=== PATIENT | female | born 1990 | race Caucasian/White ===

== ENCOUNTER 2016-10-10 11:18 | Emergency (ER) | payer OTHER ==
[2016-10-10 12:02] VITALS: BP 130/84; PULSE 80; RESP 17; TEMP 98.3
[2016-10-10] MEDS ORDERED: HEPATITIS B VIRUS VAC-ADULT/PF 10 MCG/ML 1 ML VIAL IM ONE (13:06)
[2016-10-10] MEDS ORDERED: DIPH,PERTUS(ACELL)TETVAC-LF 0.5 ML VIAL IM ONE (13:06)
[2016-10-10] MEDS ORDERED: metroNIDAZOLE 500 MG TAB PO STA (13:10)
[2016-10-10] MEDS ORDERED: SULFAMETHOX-TMP 800-160MG 1 EACH TAB PO STA (13:10)
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
== END 2016-10-10 13:45 | disposition home or self-care (01) ==
LOC: EC 11:18
DX: S61.032A Puncture wound without foreign body of left thumb without damage to nail, initial encounter (principal); S81.832A Puncture wound without foreign body, left lower leg, initial encounter; Y04.1XXA Assault by human bite, initial encounter; Y93.F9 Activity, other caregiving; Y92.218 Other school as the place of occurrence of the external cause; Y99.0 Civilian activity done for income or pay; Z23 Encounter for immunization; Z79.3 Long term (current) use of hormonal contraceptives; Z88.0 Allergy status to penicillin
CPT/HCPCS: 90471; 90715; 90746; 96372; 99283

== ENCOUNTER → 2017-05-03 | Outpatient (CLI) | payer OTHER ==
[2017-05-09 14:07] LABS: Cow's Milk IgG 86.7 mcg/mL (< 2.0); Peanut IgG 2.3 mcg/mL (< 2.0); Potato IgG < 2.0 mcg/mL (< 2.0); Soybean IgG < 2.0 mcg/mL (< 2.0); Tomato IgG < 2.0 mcg/mL (< 2.0); Wheat IgG 8.8 mcg/mL (< 2.0)
== END | disposition home or self-care (01) ==
LOC: LABWHC1 10:33
PROVIDERS: ATTEND Otolaryngology
DX: J30.89 Other allergic rhinitis (principal)
CPT/HCPCS: 36415; 86001; 86003

== ENCOUNTER 2017-10-25 16:06 | Emergency (ER) | payer OTHER ==
[2017-10-25 16:30] VITALS: RESP 18
[2017-10-25] MEDS ORDERED: MECLIZINE 12.5 MG TAB PO STA (17:11)
[2017-10-25] MEDS ORDERED: ONDANSETRON 4 MG ODT STARTER PACK 2 TAB BTL PO STA (17:11)
[2017-10-25] MEDS ORDERED: ACETAMINOPHEN TAB 500 MG TAB PO STA (17:11)
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
[2017-10-25 18:22] VITALS: BP 128/75; PULSE 78; TEMP 98.3
== END 2017-10-25 18:21 | disposition home or self-care (01) ==
LOC: EC 16:06
DX: S06.0X0A Concussion without loss of consciousness, initial encounter (principal); R11.2 Nausea with vomiting, unspecified; Z88.0 Allergy status to penicillin; Y04.0XXA Assault by unarmed brawl or fight, initial encounter; Y04.8XXA Assault by other bodily force, initial encounter; Y92.69 Other specified industrial and construction area as the place of occurrence of the external cause; Y99.0 Civilian activity done for income or pay
CPT/HCPCS: 99284; 70450; S0119

== ENCOUNTER → 2017-11-07 | Outpatient (CLI) | payer OTHER ==
--- NOTE | 2017-11-07 14:49 | CT ---
EXAMINATION TYPE: CT brain wo con DATE OF EXAM: 11/07/2017 COMPARISON: 10/25/2017. HISTORY: post concussion syndrome CT DLP: 1014 mGycm. Automated Exposure Control for Dose Reduction was Utilized. TECHNIQUE: CT scan of the head is performed without contrast. FINDINGS: There is no acute intracranial hemorrhage, mass effect, or midline shift identified. No s uspicious extra-axial fluid collection. The ventricles and sulci are within normal limits in size. The globes are intact and the visualized sinuses are clear. IMPRESSION: No acute intracranial hemorrhage, mass effect, or midline shift is seen. No acute intrac ranial process. MR could be performed if there is further clinical concern.
== END | disposition home or self-care (01) ==
LOC: RADCTMAIN 14:05
PROVIDERS: ATTEND Emergency Medicine
DX: F07.81 Postconcussional syndrome (principal)
CPT/HCPCS: 70450

== ENCOUNTER → 2020-02-18 | Outpatient (CLI) | payer BC ==
[2020-02-18 15:13] LABS: HCT 42.8 % (34.0-46.0); MCH 30.3 pg (25.0-35.0); MCHC 32.7 g/dL (31.0-37.0); MCV 92.7 fL (80.0-100.0); Mean Platelet Volume 7.5; Platelet Count 240 k/uL (150-450); RBC 4.61 m/uL (3.80-5.40); WBC 6.2 k/uL (3.8-10.6)
[2020-02-18 16:10] LABS: Erythrocyte Sedimentation Rate 2 mm/hr (0-20)
[2020-02-19 04:40] LABS: C Reactive Protein <0.4 mg/dL (0.0-0.8); Rheumatoid Factor, Qnt 11 IU/mL (0-15); Streptolysin O Ab(ASO) 192 IU/mL (0-200); Uric Acid 6.4 mg/dL (2.9-7.7)
[2020-02-20 12:10] LABS: HLA B27 NEGATIVE
== END | disposition home or self-care (01) ==
LOC: LABWHC1 14:48
PROVIDERS: ATTEND Orthopaedic Surgery
DX: M79.671 Pain in right foot (principal); M06.9 Rheumatoid arthritis, unspecified
CPT/HCPCS: 36415; 84443; 84550; 85027; 85652; 86038; 86060; 86140; 86431; 86618; 86812

== ENCOUNTER 2022-12-05 05:55 | Day surgery (SDC) | payer BC ==
[2022-12-05] MEDS ORDERED: LACTATED RINGERS 1,000 ML IV ONE (06:10)
[2022-12-05] MEDS ORDERED: LIDOCAINE 1% (10MG/ML) FOR IV START INTRADERMA PRN (06:10)
[2022-12-05] MEDS ORDERED: LACTATED RINGERS 1,000 ML IV SCH (06:10)
[2022-12-05 06:27] VITALS: TEMP 97.1
--- NOTE | 2022-12-05 07:19 | P.PCN ---
Date of Procedure: 12/05/22 Procedure(s) Performed: Preoperative diagnosis: Multiple sclerosis Post operative diagnoses: Multiple sclerosis Procedure= lumbar puncture Anesthesia= local infiltration with lidocaine 1% 3 mL only . Condition: stable Complication: none. Description of the procedure procedure risk and benefits discussed with the patient and family, consent signed. Patient and the procedure area placed in sitting position , back prepped with chlorhexidine 3 times been local infiltration of the skin and subcutaneous tissue with lidocaine 1% 3 mL for skin and subcu interstitial frustrations at L4 5 levels then 22-gauge Quincke-type needle advanced slowly at L4- 5 interlaminar space there was positive cerebrospinal fluid which was clear, no heme, no paresthesia ,total of 8 ML of clear cerebrospinal fluid collected in 4 different tubes 2 mL in each, then the needle removed and a Band-Aid applied and patient tolerated the procedure well without any complications.
[2022-12-05] MEDS ORDERED: IV FLUID CONTINUATION 900 ML IV ONE (07:21)
[2022-12-05 07:25] VITALS: RESP 20
[2022-12-05 08:01] VITALS: BP 131/87; PULSE 65
[2022-12-05 08:28] LABS: ALT 29 U/L (4-34); AST 25 U/L (14-36)
[2022-12-05 08:42] LABS: Glucose,CSF 55 mg/dL (40-70); Total Protein,CSF 41 mg/dL (12-60)
[2022-12-05 08:44] LABS: T4, Free (Free Thyroxine) 1.18 ng/dL (0.78-2.19)
[2022-12-05 09:18] LABS: Appearance,CSF Clear; CSF Tube Number 4; Nucleated Cells, CSF 0 u/L (0-5)
[2022-12-05 09:19] LABS: Red Blood Cell,CSF 1 u/L (0-10)
[2022-12-05 14:57] LABS: Rheumatoid Factor, Qnt <10 IU/mL (0-15)
[2022-12-06 12:00] LABS: Lyme IgG/IgM 0.17 Index
[2022-12-07 02:03] LABS: Anti-DNA, DS unit <1.0 IU/mL; Anti-Smith Ab Interp NEGATIVE (NEGATIVE); DNA Double-Stranded NEGATIVE (NEGATIVE)
[2022-12-07 13:01] LABS: IgG - CSF 2.1 mg/dL (0.0 - 3.4); IgG/Albumin Index (CSF) 0.51 (0.00 - 0.77); Immunoglobulin G 986 mg/dL (700 - 1600)
[2022-12-08 11:29] LABS: VDRL, Qualitative CSF Nonreactive (Nonreactive)
== END 2022-12-05 08:20 ==
LOC: ORPAIN 05:55
PROVIDERS: ATTEND Specialist
DX: G35 Multiple sclerosis (principal)
CPT/HCPCS: 62270; 81025; 82040; 82042; 82784; 82945; 83873; 83916; 84157; 84439; 84443; 84450; 84460; 86038; 86225; 86235; 86431; 86592; 86618; 88108; 89050

== ENCOUNTER 2024-08-06 08:48 | Emergency (ER) | payer BC ==
[2024-08-06 09:00] VITALS: RESP 18; TEMP 98.4
--- NOTE | 2024-08-06 09:09 | ED ---
General Adult HPI - General Chief complaint: Abdominal Pain Stated complaint: 18 wks , vaginal bleeding Time Seen by Provider: 08/06/24 09:07 Source: patient, RN notes reviewed Mode of arrival: ambulatory Limitations: no limitations - History of Present Illness Initial comments: 33-year-old female presenting to the ER with a chief complaint of vaginal spotting. Patient is approximately 18 weeks gestation. Her last menstrual cycle was April 01, 2024. Patient reports for the past 24 to 48 hours she has noticed vaginal spotting. She denies any abdominal pain or cramping. She states she is following up with . She does report this happened early on in her which then resolved returning yesterday. She denies any dysuria, hematuria, constipation/diarrhea, fevers, edema, chest pain or shortness of breath. - Related Data Home Medications Medication Instructions Recorded Confirmed No Known Home Medications 08/06/24 08/06/24 Allergies Allergy/AdvReac Type Severity Reaction Status Date / Time amoxicillin AdvReac Rash/Hives Verified 08/06/24 11:44 Review of Systems ROS Statement: Those systems with pertinent positive or pertinent negative responses have been documented in the HPI. ROS Other: All systems not noted in ROS Statement are negative. 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, CHRONIC R SHOULDER PAIN History of Any Multi-Drug Resistant Organisms: None Reported Past Surgical History: Orthopedic Surgery Additional Past Surgical History / Comment(s): R SHOULDER ARTHROSCOPIC SURGERY Past Anesthesia/Blood Transfusion Reactions: Family History of Problems w/ A nesthesia, Postoperative Nausea & Vomiting (PONV) Additional Past Anesthesia/Blood Transfusion Reaction / Comment(s): Patient, father and brother n/v Past Psychological History: No Psychological Hx Reported Smoking Status: Never smoker Past Alcohol Use History: None Reported Past Drug Use History: None Reported General Exam Limitations: no limitations General appearance: alert, in no apparent distress Respiratory exam: Present: normal lung sounds bilaterally. Absent: respiratory distress, wheezes, rales, rhonchi, stridor Cardiovascular Exam: Present: regular rate, normal rhythm, normal heart sounds. Absent: systolic murmur, diastolic murmur, rubs, gallop, clicks GI/Abdominal exam: Present: soft, normal bowel sounds, other (Gravid abdomen uterine fundus felt below umbilicus) Neurological exam: Present: alert, oriented X3, CN II-XII intact Skin exam: Present: warm, dry, intact, normal color. Absent: rash Course Vital Signs 08/06/24 08:56 Temperature 98.4 F Pulse Rate 73 Respiratory 18 Rate Blood Pressure 120/76 O2 Sat by Pulse 99 Oximetry Medical Decision Making - Medical Decision Making Was pt. sent in by a medical professional or institution (, PA, OPTICAL LATHE OPERATOR, urgent care, hospital, or intermediate...) When possible be specific @ -No Did you speak to anyone other than the patient for history (EMS, parent, family, police, friend...)? What history was obtained from this source @ -No Did you review nursing and triage notes (agree or disagree)? Why? @ -I reviewed and agree with nursing and triage notes Were old charts reviewed (outside hosp., previous admission, EMS record, old EKG, old radiological studies, urgent care reports/EKG's, intermediate records)? Report findings @ -No old charts were reviewed Differential Diagnosis (chest pain, altered mental status, abdominal pain women, abdominal pain men, vaginal bleeding, weakness, fever, dyspnea, syncope, headache, dizziness, GI bleed, back pain, seizure, CVA, palpatations, mental health, musculoskeletal)? @ -Differential Vaginal Bleeding:Spontaneous , threatened , molar , ectopic , bloody show, incompetent cervix, abruptioplacenta, placenta previa, uterine rupture, dysfunctional uterine bleeding, hemorrhage, uterine fibroids, this is not meant to be an all-inclusive list. EKG interpreted by me (3pts min.). @ -None done X-rays interpreted by me (1pt min.). @ -None done CT interpreted by me (1pt min.). @ -None done U/S interpreted by me (1pt. min.). @ - ultrasound showing a single IUP gestational age 18 weeks 1 day. heart tones 126 bpm. Anterior placenta without evidence of previa. 2.5 x 1.9 cm hypoechoic area along the posterior wall could represent fibroid. What testing was considered but not performed or refused? (CT, X-rays, U/S, labs)? Why? @ -None What meds were considered but not given or refused? Why? @ -None Did you discuss the management of the patient with other professionals (professionals i.e. , PA, OPTICAL LATHE OPERATOR, lab, RT, psych nurse, social media specialist, physical instructor, teacher, sea air land officer, returned case inspector)? Give summary @ -No Was smoking cessation discussed for >3mins.? @ -No Was critical care preformed (if so, how long)? @ -No Were there social determinants of health that impacted care today? How? (Homelessness, low income, unemployed, alcoholism, drug addiction, trans portation, low edu. Level, literacy, decrease access to med. care, [facility], rehab)? @ -No Was there de-escalation of care discussed even if they declined (Discuss DNR or withdrawal of care, Hospice)? DNR status @ -No What co-morbidities impacted this encounter? (DM, HTN, Smoking, COPD, CAD, Cancer, CVA, ARF, Chemo, Hep., AIDS, mental health diagnosis, sleep apnea, morbid obesity)? @ - Was patient admitted / discharged? Hospital course, mention meds given and route, prescriptions, significant lab abnormalities, going to OR and other pertinent info. @ -Discharge. 33-year-old female presented the ER with a chief complaint of vaginal spotting. Patient is approximately 18 weeks gestation. History and physical exam completed. Vitals within normal limits. Patient had no signs of acute distress. Exam benign. Laboratory studies obtained unremarkable. Hemoglobin stable at 12.4. hCG 12,188. Urine is hemorrhagic which is likely contaminated from vaginal spotting. ultrasound showing a single IUP gestational age 18 weeks 1 day. heart rate 126 bpm. Anterior placenta without previa. Patient received RhoGAM as blood type is B-. Patient is stable for discharge. I advised close follow-up with Dr. Monahan. Strict return parameters discussed. Patient discharged in stable condition with follow-up to OB. Patient verbally expressed understanding and agreement with care plan. Case discussed with ED attending, Dr. Knowles. Undiagnosed new problem with uncertain prognosis? @ -No Drug Therapy requiring intensive monitoring for toxicity (Heparin, Nitro, Insulin, Cardizem)? @ -No Were any procedures done? @ -No Diagnosis/symptom? @ -Threatened Acute, or Chronic, or Acute on Chronic? @ -Acute Uncomplicated (without systemic symptoms) or Complicated (systemic symptoms)? @ -Uncomplicated Side effects of treatment? @ -No Exacerbation, Progression, or Severe Exacerbation? @ -No Poses a threat to life or bodily function? How? (Chest pain, [place], [place], pneumonia, PE, COPD, DKA, ARF, appy, cholecystitis, CVA, Diverticulitis, Homicidal, Suicidal, threat to staff... and all critical care pts) @ -No - Lab Data Result diagrams: 08/06/24 09:25 08/06/24 09:25 Lab Results 08/06/24 08/06/24 08/06/24 Range/Units 09:25 09:25 09:25 WBC 8.2 (3.8-10.6) k/uL RBC 4.07 (3.80-5.40) m/uL Hgb 12.4 (11.4-16.0) gm/dL Hct 37.0 (34.0-46.0) % MCV 90.9 (80.0-100.0) fL MCH 30.5 (25.0-35.0) pg MCHC 33.5 (31.0-37.0) g/dL RDW 13.3 (11.5-15.5) % Plt Count 198 (150-450) k/uL MPV 7.5 Neutrophils % 79 % Lymphocytes % 15 % Monocytes % 3 % Eosinophils % 2 % Basophils % 0 % Neutrophils # 6.5 (1.3-7.7) k/uL Lymphocytes # 1.2 (1.0-4.8) k/uL Monocytes # 0.3 (0-1.0) k/uL Eosinophils # 0.2 (0-0.7) k/uL Basophils # 0.0 (0-0.2) k/uL PT (10.0-12.5) sec INR (<1.2) APTT (22.0-30.0) sec Sodium 134 L (137-145) mmol/L Potassium 3.7 (3.5-5.1) mmol/L Chloride 108 H (98-107) mmol/L Carbon Dioxide 22 (22-30) mmol/L Anion Gap 4 mmol/L BUN 7 (7-17) mg/dL Creatinine 0.67 (0.52-1.04) mg/dL Est GFR (CKD-EPI)AfAm >90 (>60 ml/min/1.73 sqM) Est GFR (CKD-EPI)NonAf >90 (>60 ml/min/1.73 sqM) Glucose 76 (74-99) mg/dL Calcium 8.7 (8.4-10.2) mg/dL Total Bilirubin 0.4 (0.2-1.3) mg/dL AST 16 (14-36) U/L ALT 13 (4-34) U/L Alkaline Phosphatase 49 (38-126) U/L Total Protein 6.3 (6.3-8.2) g/dL Albumin 3.7 (3.5-5.0) g/dL HCG, Quant 00642.1 mIU/mL Urine Color Colorless Urine Appearance Cloudy H (Clear) Urine pH 7.5 (5.0-8.0) Ur Specific [place] 1.012 (1.001-1.035) Urine Protein Negative (Negative) Urine Glucose (UA) Negative (Negative) Urine Ketones Negative (Negative) Urine Blood Large H (Negative) Urine Nitrite Negative (Negative) Urine Bilirubin Negative (Negative) Urine Urobilinogen <2.0 (<2.0) mg/dL Ur Leukocyte Esterase Moderate H (Negative) Urine RBC 72 H (0-5) /hpf Urine WBC 25 H (0-5) /hpf Ur Squamous Epith Cells 17 H (0-4) /hpf Urine Mucus Rare H (None) /hpf Blood Type Blood Type Confirm Blood Type Recheck Bld Type Recheck Status Antibody Screen Spec Expiration Date 08/06/24 08/06/24 08/06/24 Range/Units 09:25 09:30 09:34 WBC (3.8-10.6) k/uL RBC (3.80-5.40) m/uL Hgb (11.4-16.0) gm/dL Hct (34.0-46.0) % MCV (80.0-100.0) fL MCH (25.0-35.0) pg MCHC (31.0-37.0) g/dL RDW (11.5-15.5) % Plt Count (150-450) k/uL MPV Neutrophils % % Lymphocytes % % Monocytes % % Eosinophils % % Basophils % % Neutrophils # (1.3-7.7) k/uL Lymphocytes # (1.0-4.8) k/uL Monocytes # (0-1.0) k/uL Eosinophils # (0-0.7) k/uL Basophils # (0-0.2) k/uL PT 9.9 L (10.0-12.5) sec INR 0.9 (<1.2) APTT 24.4 (22.0-30.0) sec Sodium (137-145) mmol/L Potassium (3.5-5.1) mmol/L Chloride (98-107) mmol/L Carbon Dioxide (22-30) mmol/L Anion Gap mmol/L BUN (7-17) mg/dL Creatinine (0.52-1.04) mg/dL Est GFR (CKD-EPI)AfAm (>60 ml/min/1.73 sqM) Est GFR (CKD-EPI)NonAf (>60 ml/min/1.73 sqM) Glucose (74-99) mg/dL Calcium (8.4-10.2) mg/dL Total Bilirubin (0.2-1.3) mg/dL AST (14-36) U/L ALT (4-34) U/L Alkaline Phosphatase (38-126) U/L Total Protein (6.3-8.2) g/dL Albumin (3.5-5.0) g/dL HCG, Quant mIU/mL Urine Color Urine Appearance (Clear) Urine pH (5.0-8.0) Ur Specific [place] (1.001-1.035) Urine Protein (Negative) Urine Glucose (UA) (Negative) Urine Ketones (Negative) Urine Blood (Negative) Urine Nitrite (Negative) Urine Bilirubin (Negative) Urine Urobilinogen (<2.0) mg/dL Ur Leukocyte Esterase (Negative) Urine RBC (0-5) /hpf Urine WBC (0-5) /hpf Ur Squamous Epith Cells (0-4) /hpf Urine Mucus (None) /hpf Blood Type B Negative Blood Type Confirm B Negative Blood Type Recheck No Previous Record Bld Type Recheck Status CABO Indicated Antibody Screen NEGATIVE Spec Expiration Date 08/09/2024 - 7582 - Radiology Data Radiology results: report reviewed, image reviewed Disposition Clinical Impression: Threatened Disposition: HOME SELF-CARE Condition: Stable Instructions (If sedation given, give patient instructions): Threatened Miscarriage (ED) Additional Instructions: Follow-up closely with Dr. Monahan for recheck. Return to the ER for any new or worsening symptoms. Is patient prescribed a controlled substance at d/c from ED?: No Referrals: Alhaji Baeza MD [Primary Care Provider] - 1-2 days Erasmo Monahan MD [STAFF PHYSICIAN] - 1-2 days Time of Disposition: 11:53
[2024-08-06 09:48] LABS: Basophils % (A) 0 %; Eosinophils # (A) 0.2 k/uL (0-0.7); Eosinophils % (A) 2 %; HGB 12.4 gm/dL (11.4-16.0); Lymphocytes # (A) 1.2 k/uL (1.0-4.8); Lymphocytes % (A) 15 %; MCH 30.5 pg (25.0-35.0); MCHC 33.5 g/dL (31.0-37.0); MCV 90.9 fL (80.0-100.0); Mean Platelet Volume 7.5; Monocytes # (A) 0.3 k/uL (0-1.0); Monocytes % (A) 3 %; Neutrophils # (A) 6.5 k/uL (1.3-7.7); Neutrophils % (A) 79 %; Platelet Count 198 k/uL (150-450); RBC 4.07 m/uL (3.80-5.40); RDW 13.3 % (11.5-15.5); WBC 8.2 k/uL (3.8-10.6)
[2024-08-06 09:56] LABS: Appearance,Urine Cloudy (Clear); Bilirubin,Urine Negative (Negative); Blood,Urine Large (Negative); Color,Urine Colorless; Glucose,Urine (UA) Negative (Negative); Ketones,Urine Negative (Negative); Leukocyte Esterase,Urine Moderate (Negative); Mucus,Urine Rare /hpf; Nitrite,Urine Negative (Negative); PH, Urine 7.5 (5.0-8.0); Protein,Urine Negative (Negative); RBC,Urine 72 /hpf (0-5); Specific Gravity,Urine 1.012 (1.001-1.035); Squamous Epithelial Cell,Urine 17 /hpf (0-4); Urobilinogen,Urine <2.0 mg/dL (<2.0); WBC,Urine 25 /hpf (0-5)
[2024-08-06 10:07] LABS: ALT 13 U/L (4-34); AST 16 U/L (14-36); African American GFR (CKD) >90 (>60 ml/min/1.73 sqM); Albumin 3.7 g/dL (3.5-5.0); Alkaline Phosphatase 49 U/L (38-126); Anion Gap 4 mmol/L; Blood Urea Nitrogen 7 mg/dL (7-17); Calcium 8.7 mg/dL (8.4-10.2); Carbon Dioxide 22 mmol/L (22-30); Chloride 108 mmol/L (98-107); Glucose 76 mg/dL (74-99); Non-African American GFR(CKD) >90 (>60 ml/min/1.73 sqM); Potassium 3.7 mmol/L (3.5-5.1); Sodium 134 mmol/L (137-145); Total Bilirubin 0.4 mg/dL (0.2-1.3); Total Protein 6.3 g/dL (6.3-8.2)
[2024-08-06 10:21] LABS: INR 0.9 (<1.2); Partial Thromboplastin Time 24.4 sec (22.0-30.0); Prothrombin Time 9.9 sec (10.0-12.5)
--- NOTE | 2024-08-06 10:39 | US ---
EXAMINATION TYPE: US OB >= 14 wk fetus DATE OF EXAM: 08/06/2024 COMPARISON: None CLINICAL INDICATION: Female, 33 years old with history of vag spotting 18 weeks gestation; spotting w hen wiping TECHNIQUE: Transabdominal (TA) FINDINGS: GESTATIONAL AGE / DATING Physician Established: (18 weeks/1 days) EDC: 01/06/25 Dates by LMP: LMP unknown Dates by First Scan: No previous this is first scan Dates by Current Scan: (18 weeks/4 days) EDC: 01/03/25 Beta HCG (if available): Not available at this time SURVEY IUP: Single PLACENTA: Anterior PREVIA: No Previa JACEK: 13.1 cm Normal CERVICAL LENGTH (transabdominal: norm > 3.0cm): 3.3 cm BIOMETRY PRESENTATION: Vertex LIE: Longitudinal BPD: 4.3 cm 19 weeks / 0 days HC: 15.9 cm 18 weeks / 5 days AC: 12.4 cm 18 weeks / 0 days FL: 2.9 cm 19 weeks / 0 days ESTIMATED WEIGHT IN GRAMS: 245.4 grams ESTIMATED WEIGHT IN LBS/OZ: 0 lbs. 9 oz. WEIGHT PERCENTAGE BASED ON ESTABLISHED DATES: 70.8% HC/AC: 1.28, slightly increased FL/AC: 23.6 Normal HEART RATE: 126 bpm RHYTHM: Normal [employer] Project Planner notes: Hypoechoic area seen posterior uterus measuring 3.5 x 1.9cm possible fibroid vs other etiology. IMPRESSION: 1. Single live intrauterine with established gestational age of 18 weeks 1 days. Current ul trasound biometry is concordant at 18 weeks 4 days placing the child at the 71st percentile for weigh t. 2. Anterior placenta without previa. 3. The HC/AC ratio is slightly increased at 1.28 (normal range 1.09-1.27). Recommend short interval f ollow-up to ensure appropriate growth. 4. A 2.5 x 1.9 cm hypoechoic area appears to be present along the posterior wall. Etiology unclear, p robably an intramural fibroid. Reassess at follow-up. [facility], , 08/06/2024 10:36 AM
[2024-08-06 11:44] LABS: HCG,Quantitative Serum 12188.1 mIU/mL
[2024-08-06 12:21] VITALS: BP 111/70; PULSE 66
[2024-08-06] MEDS: Rhogam IMMUNE GLOBULIN 1,500 UNIT/1 ML IM ONE (12:34)
== END 2024-08-06 12:39 | disposition home or self-care (01) ==
LOC: EC 08:48
DX: O20.0 Threatened abortion (principal); Z88.0 Allergy status to penicillin; Z86.73 Personal history of transient ischemic attack (TIA), and cerebral infarction without residual deficits; Z3A.18 18 weeks gestation of pregnancy
CPT/HCPCS: 99284; 96372; 36415; 86900; 86901; 80053; 85025; 85610; 85730; 86850; 81001; 84702; 76805; J2790

== ENCOUNTER 2025-01-06 22:02 | Outpatient (CLI) | payer BC ==
[2025-01-06 23:42] VITALS: BP 136/86; PULSE 89; RESP 16; TEMP 97.1
--- NOTE | 2025-01-21 20:22 | P.MSEPDOC ---
Presenting Problems - Arrival Data Date of Arrival on Unit: 01/06/25 Time of Arrival on Unit: 22:02 Mode of Transport: Ambulatory - Complaint OB-Reason for Admission/Chief Complaint: Rule Out SROM Comment: 40 weeks 0 days. Presents with gush of clear fuid at 2039, no leaking since or noted and negative amnisure. Has been irregularry cx the past few days Medical History - Information : 1 Para: 0 Term: 0 : 0 Abortions: Spontaneous or Elective: 0 Number of Living Children: 0 - Gestational Age Gestational Age by NEDRA (wks/days): 40 Weeks and 0 Days Review of Systems - Review of Systems Constitutional: No problems Breast: No problems ENT: No problems Cardiovascular: No problems Respiratory: No problems Gastrointestinal: No problems Genitourinary: No problems Musculoskeletal: No problems Neurological: No problems Skin: No problems Vital Signs - Temperature Temperature: 97.1 F Temperature Source: Temporal Artery Scan - Pulse Pulse Oximetery Pulse Rate: 89 Pulse Assessment Method: Pulse Oximetry - Respirations Respiratory Rate: 16 Oxygen Delivery Method: Room Air - Blood Pressure Right Arm Blood Pressure: 136/86 Blood Pressure Mean: 102 Blood Pressure Source: Automatic Cuff Medical Screen Scoring - Cervical Exam Dilation (cm): 2.5 Effacement (%): 80 Station: -2 Membranes: Intact - Uterine Contractions Frequency From (mins): 4 Frequency To (mins): 11 Intensity: Mild Resting: Soft to palpation - Assessment - Baby A Baseline FHR: 125 Heart Rate - NICHD Category: Category I (Normal) NST: Reactive Physician Notification - Physician Notified Physician Notified Date: 01/06/25 Physician Notified Time: 23:29 Physician: Mari Disla New Order Received: Yes - Notification Comment Comment: Spoke woth Dr. Disla, pt of Dr. Boyle 40 weeks 0 days. Presents with gush of clear fuid at 2039, no leaking since or noted and negative amnisure. Has been irregularry cx the past few days, still irregular 4-11 min on TOCO. SVE 2.5/80/-2 and repeat 1 hour is the same. Reactivee cat 1. Has apt tomorrow. Order to d/c home Maternal Triage Index - Maternal Triage Index Presenting for scheduled procedure w/no complaint: No - Stat/Priority 1 Stat Priority 1: No - Urgent/Priority 2 Urgent Priority 2: No - Prompt/Priority 3 Prompt Priority 3: Yes Criteria Met for Priority 3: Spoke woth Dr. Disla, pt of Dr. Boyle 40 weeks 0 days. Presents with gush of clear fuid at 2039, no leaking since or noted and negative amnisure. Has been irregularry cx the past few days, still irregular 4-11 min on TOCO. SVE 2.5/80/-2 and repeat 1 hour is the same. Reactivee cat 1. Has apt tomorrow. Order to d/c home Disposition - Disposition OB Disposition: Discharge to home I agree with the RN Medical Screening Exam: Yes Physician's MSE Comment: I have neither seen no examined the patient Case reviewed; plan agreed upon as documented in EMR&OBIX.: Yes Diagnosis: FALSE LABOR, UNSPECIFIED
== END 2025-01-06 23:32 | disposition home or self-care (01) ==
LOC: FBPOP 22:02
PROVIDERS: ATTEND Obstetrics & Gynecology
DX: O47.1 False labor at or after 37 completed weeks of gestation (principal); Z3A.40 40 weeks gestation of pregnancy; Z88.1 Allergy status to other antibiotic agents
CPT/HCPCS: 59025; 84112; 99213

== ENCOUNTER 2025-01-10 08:29 | Inpatient (IN) | payer BC ==
[2025-01-10] MEDS ORDERED: METHYLERGONOVINE 0.2 MG/ML 1 ML AMP IM PRN (09:01)
[2025-01-10] MEDS ORDERED: OXYTOCIN 10 UNIT/ML 1 ML VIAL IM PRN (09:01)
[2025-01-10] MEDS ORDERED: CARBOPROST TROMETHAMINE 250 MCG/ML 1 ML AMP IM PRN (09:01)
[2025-01-10] MEDS ORDERED: TERBUTALINE 1 MG/ML VIAL SQ PRN (09:01)
[2025-01-10] MEDS ORDERED: TRANEXAMIC 1,000 MG/100ML-NACL 1,000 MG in EMPTY BAG 1 BAG IV PRN (09:01)
[2025-01-10] MEDS ORDERED: miSOPROStoL 200 MCG TAB RECTAL PRN (09:01)
[2025-01-10] MEDS ORDERED: miSOPROStoL 200 MCG TAB PO PRN (09:01)
[2025-01-10 09:13] LABS: Basophils # (A) 0.03 10*3/uL (0.00-0.10); Basophils % (A) 0.2 %; Eosinophils % (A) 0.8 %; HCT 34.7 % (37.2-46.3); HGB 11.6 g/dL (12.0-15.0); Lymphocytes # (A) 1.45 10*3/uL (0.90-5.00); Lymphocytes % (A) 11.8 %; MCH 26.2 pg (27.0-32.0); MCHC 33.4 g/dL (32.0-37.0); MCV 78.5 fL (80.0-97.0); Mean Platelet Volume 11.5 fL (9.5-12.2); Monocytes # (A) 0.73 10*3/uL (0.20-1.00); Neutrophils # (A) 9.86 10*3/uL (1.80-7.70); Neutrophils % (A) 80.6 %; Platelet Count 218 10*3/uL (140-440); RBC 4.42 10*6/uL (4.10-5.20); RDW 13.9 % (11.5-14.5); WBC 12.24 10*3/uL (4.50-10.00)
[2025-01-10] MEDS: LACTATED RINGERS 1,000 ML IV SCH (09:26)
[2025-01-10] MEDS ORDERED: fentaNYL (PF) 50 MCG/ML 5 ML AMP ONE (09:41)
[2025-01-10] MEDS ORDERED: SODIUM CHLORIDE 0.9% 250 ML BAG ONE (09:41)
[2025-01-10] MEDS ORDERED: ROPIVACAINE 5 MG/ML 30 ML VIAL ONE (09:41)
--- NOTE | 2025-01-10 10:48 | P.HPOB ---
History of Present Illness H&P Date: 01/10/25 Chief Complaint: IUP at 40-4/7 weeks, active labor This is a 34-year-old 1 para 0 at 40-4/7 weeks that presents to labor and delivery with complaints of regular painful contractions. Patient states she began soheila around 130 this morning. Patient states she became uncomfortable and therefore presented to OB triage. Patient has been receiving routine care which has been complicated by a diagnosis of polyhydramnios. Patient did receive an epidural soon after admission. On blood work this patient is a blood type of B-, rubella status imm une, hepatitis B surface engine negative, HIV negative, RPR nonreactive, group A strep culture negative. 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 Smoking Status: Never smoker Past Alcohol Use History: None Reported Past Drug Use History: None Reported Medications and Allergies Home Medications Medication Instructions Recorded Confirmed Type Vit No.179/Iron/Folic 1 tab PO DAILY 01/10/25 01/10/25 History [ Tablet] Allergies Allergy/AdvReac Type Severity Reaction Status Date / Time amoxicillin AdvReac Rash/Hives Verified 01/10/25 08:45 Exam Osteopathic Statement: *. No significant issues noted on an osteopathic structural exam other than those noted in the History and Physical/Consult. Vital Signs Temp Pulse Resp BP Pulse Ox 01/10/25 08:44 97.8 F 77 16 148/91 98 Intake and Output 01/09/25 01/10/25 01/10/25 22:59 06:59 14:59 Other: Weight 79.832 kg Targeted physical exam is performed this date in general is well-nourished well- developed female comfortable with epidural, breathing appears nonlabored, heart tones noted to be category 1 and she is soheila every 1 to 2 minutes, on cervical exam she is 7-8/80/-2 station amniotomy is performed and copious clear fluid is obtained. Results Result Diagrams: 01/10/25 09:00 Abnormal Lab Results - Last 24 Hours (Table) 01/10/25 Range/Units 09:00 WBC 12.24 H (4.50-10.00) 10*3/uL Hgb 11.6 L (12.0-15.0) g/dL Hct 34.7 L (37.2-46.3) % MCV 78.5 L (80.0-97.0) fL MCH 26.2 L (27.0-32.0) pg Immature Gran # 0.07 H (0.00-0.04) 10*3/uL Neutrophils # 9.86 H (1.80-7.70) 10*3/uL Assessment and Plan (1) Post-dates Current Visit: Yes Status: Acute Code(s): O48.0 - POST-TERM SNOMED Code(s): 50427463 (2) Polyhydramnios Current Visit: Yes Status: Acute Code(s): O40.9XX0 - POLYHYDRAMNIOS, UNSP TRIMESTER, NOT APPLICABLE OR UNSP SNOMED Code(s): 76595018 Plan: Admit to labor and delivery Epidural placed prior to my arrival Clear liquids as tolerated Anticipate spontaneous vaginal delivery
[2025-01-10] MEDS: OXYTOCIN 30 UNITS/500 ML NS 30 UNIT in SALINE 1 500ML.BAG IV SCH (11:24)
[2025-01-10] MEDS ORDERED: diphenhydrAMINE 25 MG CAP PO PRN (13:30)
[2025-01-10] MEDS ORDERED: diphenhydrAMINE 50 MG CAP PO PRN (13:30)
[2025-01-10] MEDS ORDERED: diphenhydrAMINE 50 MG/ML 1 ML VIAL IVP PRN ×2 (13:30)
[2025-01-10] MEDS ORDERED: LANOLIN CREAM 1 GM TUBE TOPICAL PRN (13:30)
[2025-01-10] MEDS ORDERED: ZOLPIDEM 5 MG TAB PO PRN (13:30)
[2025-01-10] MEDS ORDERED: SIMETHICONE 80 MG CHEWABLE PO PRN (13:30)
[2025-01-10] MEDS ORDERED: HYDROCORTISONE 2.5% RECTAL CREAM 30 GM TUBE RECTAL PRN (13:30)
[2025-01-10] MEDS: LIDOCAINE 0.5% (PF) 5 MG/ML (50 ML SDV) SQ PRN (13:39)
[2025-01-10] MEDS: BENZOCAINE/MENTHOL SPRAY 1 GM/SPRAY AEROSOL TOPICAL PRN (13:42)
--- NOTE | 2025-01-10 14:26 | P.PROBDLV ---
Vaginal Delivery Note - . Vaginal Delivery Note: Date of service 01/10/2025 Findings: Viable male delivered at 1304, weight of 9 pounds 0 ounces, Apgars of 8 and 9 at 1 and 5 minutes respectively. This is a 34-year-old 1 para 0 that presented to labor and delivery at 40-4/7 weeks with complaints of regular painful contractions. Patient was noted to be 6 cm upon admission. Patient was admitted and did request epidural. Epidural was placed without difficulty by the anesthesia department. Patient u nderwent amniotomy and meconium stained fluid was appreciated. Patient made good progress toward complete dilation. Pitocin augmentation of labor was begun as contractions spaced after epidural. Patient progressed to complete began pushing, a large amount of bleeding was appreciated. Patient was noted to be a strong pressure therefore she was consented to a vacuum-assisted vaginal delivery given bleeding and category 2 heart tones. Vacuum was placed, placement was confirmed and used during 1 contraction. With excellent maternal effort baby was delivered in an occiput anterior presentation suction was released and was delivered in the usual fashion and placed on the maternal abdomen. Spontaneous cry was noted at . Nursery RN was available at the time of delivery. Umbilical cord was doubly clamped and cut. Placenta was delivered spontaneously intact with a three-vessel cord being noted no obvious signs of abruption were appreciated. Uterus was noted to be firm below the umbilicus. Red rubber catheter was used to drain the bladder approximately 200 cc of clear yellow urine. On inspection the patient's vaginal vault of midline second-degree laceration along with a left sulcus laceration was appreciated. The sulcus laceration was inspected apex was appreciated and repaired to the level of the midline laceration with 3-0 Rapide in a running locked fashion. A second 3-0 Rapide was used to repair the midline laceration in the usual fashion. Bleeding was noted in the midportion of the laceration therefore a [id number] suture was used to obtain hemostasis. Upon inspection hemostasis was appreciated. Uterus was noted to be firm and below the umbilicus Estimated blood loss 300 cc All counts noted be correct x 2 at the end of the delivery. Patient and infant tolerated delivery well and resting comfortably
[2025-01-10] MEDS: PRENATAL VIT-IRON-FOLIC ACID 1 EACH TABLET PO SCH (15:23)
[2025-01-10] MEDS: IBUPROFEN 800 MG TAB PO SCH (15:23)
[2025-01-10] MEDS: SENNOSIDES-DOCUSATE SODIUM 1 EACH TAB PO SCH (21:08)
[2025-01-10] MEDS: ACETAMINOPHEN TAB 500 MG TAB PO SCH (21:08)
[2025-01-10] MEDS: Rhogam IMMUNE GLOBULIN 1,500 UNIT/1 ML IM ONE (21:53)
[2025-01-11 06:17] LABS: Basophils # (A) 0.03 10*3/uL (0.00-0.10); Basophils % (A) 0.2 %; Eosinophils % (A) 0.7 %; HCT 26.5 % (37.2-46.3); Lymphocytes # (A) 1.69 10*3/uL (0.90-5.00); Lymphocytes % (A) 11.2 %; MCH 25.7 pg (27.0-32.0); MCHC 32.1 g/dL (32.0-37.0); MCV 80.1 fL (80.0-97.0); Mean Platelet Volume 11.6 fL (9.5-12.2); Monocytes # (A) 0.89 10*3/uL (0.20-1.00); Monocytes % (A) 5.9 %; Neutrophils # (A) 12.39 10*3/uL (1.80-7.70); Neutrophils % (A) 81.7 %; Platelet Count 170 10*3/uL (140-440); RBC 3.31 10*6/uL (4.10-5.20); RDW 14.3 % (11.5-14.5); WBC 15.15 10*3/uL (4.50-10.00)
[2025-01-11 06:36] LABS: HGB 8.5 g/dL (12.0-15.0)
[2025-01-11 08:11] VITALS: BP 116/78; PULSE 96; RESP 16; TEMP 98.4
--- NOTE | 2025-01-11 09:18 | P.DS ---
Providers Date of admission: 01/10/25 08:44 Expected date of discharge: 01/11/25 Attending physician: Erasmo Monahan Primary care physician: Stated None - Discharge Diagnosis(es) (1) Post-dates Current Visit: Yes Status: Acute (2) Polyhydramnios Current Visit: Yes Status: Acute (3) Status post vacuum-assisted vaginal delivery Secondary to category 2 heart tones, based vaginal bleeding and clots during pushing Current Visit: Yes Status: Acute (4) Obstetrical laceration, second degree Current Visit: Yes Status: Acute (5) Obstetrical laceration Current Visit: Yes Status: Acute Hospital Course: 34-year-old 1 now para 1 that presented to labor and delivery yesterday with complaints of regular painful contractions. Patient had been receiving routine care which have been complicated by diagnosis of polyhydramnios. Patient stated contractions began around 1:30 in the morning continue to become more uncomfortable and presented to labor and delivery. Patient was admitted to labor and delivery and did request epidural. Epidural was placed without difficulty by the anesthesia department. Patient underwent amniotomy and copious clear fluid was obtained. Patient made good progress toward complete dilation. Once completely dilated patient began pushing. With pushing increased vaginal bleeding bright red in nature along with clots were appreciated. Patient was an excellent pusher therefore was counseled on vacuum- assisted vaginal delivery. Vacuum was placed and was delivered without difficulty. Weight of 9 pounds 0 ounces. Patient did sustain a left lateral sulcus tear in addition to a second-degree midline laceration. These were repaired in the usual fashion with 3-0 Rapide. Hemostasis was noted after repair. Patient's course has been uneventful. This day #1 she is ambulating and voiding without difficulty. She is tolerating a regular diet without nausea or vomiting. States her pain is well-controlled. She denies concerns. She would like discharge home later today. Patient Condition at Discharge: Good Plan - Discharge Summary New Discharge Prescriptions: No Action Vit No.179/Iron/Folic [ Tablet] 1 tab PO DAILY Discharge Medication List Vit No.179/Iron/Folic [ Tablet] 1 tab PO DAILY 01/10/25 [History] Follow up Appointment(s)/Referral(s): Erasmo Monahan MD [STAFF PHYSICIAN] - 6 Weeks Patient Instructions/Handouts: Vaginal Delivery (GEN), Vaginal Delivery (DC) Activity/Diet/Wound Care/Special Instructions: No tub baths or intercourse until 6 weeks , [id number] ibuprofen 600 mg or 3 tablets every 6 hours as needed for pain. Routine check in 6 weeks. Should she have any concerns prior to this appointment she is urged to call the office and be seen prior. Discharge Disposition: HOME SELF-CARE
--- NOTE | 2025-01-15 10:12 | CDI ---
Documentation Clarification Form Date: 01/15/25 From: Mikki Paulino Admit Date: 01/10/2025 08:44:00 AM Patient Name: Estella Lala Visit Number: [id number] Discharge Date: 01/11/2025 02:15:00 PM ATTENTION: The Clinical Documentation Specialists (CDI) and [facility] Coding Staff appreciate your assistance in clarifying documentation. Please respond to the clarification below the line at the bottom and electronically sign. The CDI & [facility] Coding staff will review the response and follow-up if needed. Please note: Queries are made part of the Legal Health Record. If you have any questions, please contact the author of this message via ITS. Doctor/Provider: Eleonora Ellis, Your patient has a hemoglobin/hematocrit level of 11.6/34.7 (01/10) & 8.5/26.5 (01/11). Please clarify if there is an additional diagnosis and/or clinical significance related to these lab values. History/Risk Factors: complicated with polyhydramnios, hx of asthma, CVA, GI bleed Clinical indicators: Patient progressed to complete began pushing, a large amount ofbleedingwas appreciated Patient was noted to be a strongpressuretherefore she was consented to avacuum-assisted vaginal deliverygivenbleedingandcategory 2 heart tones. Vacuumwasplaced, placementwas confirmed and used during 1contraction. Placenta wasdelivered spontaneouslyintact with a three-vessel cord being noted no obvious signs of abruption were appreciated. Uterus was noted to be firm below the umbilicus Oninspectionthe patient's vaginal vault of midline second-degree lacerationalong with a left sulcuslacerationwas appreciated. The sulcuslacerationwasinspectedapex was appreciated and repairedto the level of the midlinelacerationwith 3-0 Rapide in a running locked fashion. A second 3-0 Rapide was used torepairthe midlinelaceration in the usual fashion. Bleedingwas noted in the midportion of thelaceration therefore a [id number] suture was used to obtain hemostasis. Upon inspectionhemostasis was appreciated. Estimated blood loss 300 cc. Treatment: Monitor H&H Is there an additional diagnosis and/or clinical significance related to the above lab result/information: [ X ] Acute blood loss anemia [ ] No additional diagnosis/Not clinically significant [ ] Unable to determine [ ] Other, please specify MTDD
== END 2025-01-11 14:15 | disposition home or self-care (01) | DRG 806 ==
LOC: FBPOP 08:29 → 4FBP 08:44
PROVIDERS: ADMIT Obstetrics & Gynecology Obstetrics; ATTEND Obstetrics & Gynecology
PROC: 0KQM0ZZ Repair Perineum Muscle, Open Approach (ICD-10-PCS; principal; 2025-01-10)
PROC: 10D07Z6 Extraction of Products of Conception, Vacuum, Via Natural or Artificial Opening (ICD-10-PCS; principal; 2025-01-10)
DX: O40.3XX0 Polyhydramnios, third trimester, not applicable or unspecified (principal); D62 Acute posthemorrhagic anemia; Z37.0 Single live birth; O48.0 Post-term pregnancy; O70.1 Second degree perineal laceration during delivery; O77.0 Labor and delivery complicated by meconium in amniotic fluid; O99.02 Anemia complicating childbirth; Z3A.40 40 weeks gestation of pregnancy; Z86.73 Personal history of transient ischemic attack (TIA), and cerebral infarction without residual deficits
CPT/HCPCS: 59025; 85025; 85461; 86850; 86900; 86901; 88307; 99213